=== PATIENT | female | born 1955 | race Caucasian/White ===

== ENCOUNTER → 2023-04-30 09:35 | Outpatient (POV) | payer MEDICARE, SELFPAY ==
[2023-04-30 09:48] VITALS: BP 140/68; PULSE 68; RESP 18; O2SAT 98; BMI 27.2
--- NOTE | 2023-04-30 10:07 | EXP.PAIN.OV ---
HPI Data of Consult Patient: new to practice Consult date: 04/30/23 Requesting Physician: Glendy Nieto APRN Consult Narrative Reason for consult: Low back pain, bilateral lower extremity pain History of present illness: Ms. Hanson is a 67 year old female who presents today as a transfer patient from the [place] office. Today she rates her pain a 7 out of 10. Patient states her pain is all in her low back and legs and describes it as a aching, throbbing sensation that is worse with increased activity. Patient did just recently undergo a Medtronic spinal cord stimulator generator change on April 07. Patient previously had a spinal cord stimulator implanted by Dr. Ly in 2013. She presents today for suture removal. Patient denies any previous issues with this device or any problems since her procedure date. She does state that the spinal cord stimulator does help manage prachi pain symptoms well. Patient is a [facility] patient who was originally referred to [facility] pain management for the battery change. She is currently managed by his office with morphine sulfate ER 15 mg daily and oxycodone 10 mg 4 times a day. Patient is also prescribed lorazepam 1 mg 3 times a day from another outside provider. Her Tristian is [id number]. Its been reviewed and appropriate. CC: Glendy Nieto APRN [facility] Disclaimer: The information contained in this section may have been updated after the patient was seen, as this information can be updated by other users. Medical History (Updated 04/30/23 @ 10:12 by Glendy Nieto APRN) Anxiety Degenerative disc disease, lumbar Diabetes Surgical History (Updated 04/28/23 @ 10:23 by Melanie Al RN) H/O lumbar discectomy S/P insertion of spinal cord stimulator Social History Smoking Status: Unknown if ever smoked alcohol intake: never current occupational status: other Travel in the last 8 weeks: None Review of Systems Review of Systems Review of systems:: pertinent systems reviewed and negative unless documented below Review of systems (narrative): Review of Systems: General: No recent weight changes, no fever, no sleep disturbances Respiratory: No cough, no shortness of air, no recurring pulmonary infections Cardiovascular/peripheral vascular: No chest pain, no palpitations, no edema, no shortness of breath Gastrointestinal: No new onset incontinence, normal bowel movements reported Genitourinary: No new onset incontinence Musculoskeletal: Low back pain, leg pain Psychiatric: [Normal mood/affect] Neurological: [Denies weakness in extremities], [denies balance issues] Meds Home Medications and Allergies Home Medications Medication Instructions Recorded Confirmed Type amitriptyline 50 mg tablet 50 mg PO DAILY Pain 04/28/23 04/28/23 History empagliflozin 10 mg-linagliptin 5 1 tab PO DAILY Diabetes 04/28/23 04/28/23 History mg-metformin ER 1,000 mg tablet,24hr (Trijardy XR) folic acid 1 mg tablet 1 mg PO DAILY Supplement 04/28/23 04/28/23 History hydrochlorothiazide 25 mg tablet 25 mg PO DAILY fluid retention 04/28/23 04/28/23 History linaclotide 145 mcg capsule 145 mcg PO DAILY Constipation 04/28/23 04/28/23 History (Smitha) lisinopril 20 mg tablet 20 mg PO DAILY blood pressure 04/28/23 04/28/23 History lorazepam 1 mg tablet 1 mg PO TID Anxiety 04/28/23 04/28/23 History methotrexate sodium 2.5 mg tablet 2.5 mg PO DAILY Arthritis 04/28/23 04/28/23 History metoprolol tartrate 25 mg tablet 25 mg PO BID blood pressure 04/28/23 04/28/23 History morphine 15 mg tablet,extended 15 mg PO DAILY chronic pain 04/28/23 04/28/23 History release oxycodone 10 mg tablet 10 mg PO QID chronic pain 04/28/23 04/28/23 History pravastatin 40 mg tablet 40 mg PO HS Cholesterol 04/28/23 04/28/23 History prednisone 5 mg tablet 5 mg PO DAILY Arthritis 04/28/23 04/28/23 History New Prescriptions to Start Prescriptions: Allergies Allergy/AdvReac Type Severity Reaction Status Date
== END ==
PROVIDERS: Visit Provider Nurse Practitioner Family
DX: M54.16 Radiculopathy, lumbar region (principal); M54.50 Low back pain, unspecified; G89.4 Chronic pain syndrome; Z96.82 Presence of neurostimulator; Z48.02 Encounter for removal of sutures
CPT/HCPCS: 99202; G0463

== ENCOUNTER → 2023-06-26 11:18 | Outpatient (POV) | payer MEDICARE, SELFPAY ==
--- NOTE | 2023-06-26 12:08 | EXP.PAIN.SOA ---
[facility] Pain Management SOAP Note Subjective:: Patient is a pleasant 67-year-old female who presents today for follow-up. We are currently treating the patient for degenerative disc disease of lumbar spine with lumbar radiculopathy symptoms, chronic pain syndrome. Today she rates her pain a 6 out of 10. Patient denies any new trauma or injury. She denies any change to the location or type of pain she experiences. Patient does present today for reprogramming for however Medtronic spinal cord stimulator. Patient had her previous stimulator replaced on April 07, 2023. Patient denies any new issues following this procedure. She states she has no further incisional pain and has done well overall. Patient is managed by OZZIE Lopez for her pain medication. Patient is taking morphine sulfate ER 15 mg daily and oxycodone 10 mg 4 times a day. Patient is prescribed lorazepam 1 mg 3 times a day from an outside provider. Her Tristian is [id number]. Its been reviewed and appropriate. Review of Systems: General: No recent weight changes, no fever, no sleep disturbances Respiratory: No cough, no shortness of air, no recurring pulmonary infections Cardiovascular/peripheral vascular: No chest pain, no palpitations, no edema, no shortness of breath Gastrointestinal: No new onset incontinence, normal bowel movements reported Genitourinary: No new onset incontinence Musculoskeletal: Low back pain, bilateral leg pain Psychiatric: [Normal mood/affect] Neurological: [Denies weakness in extremities], [denies balance issues] Objective:: Physical Exam: General: Alert and oriented x3, no acute distress, pleasant and cooperative Lungs: Respirations even and unlabored, symmetrical chest expansion Eyes: PERRL Musculoskeletal: Flexion and extension of lumbar [spine] somewhat guarded secondary to pain, [antalgic gait noted] Neurological: Speech clear, no gross sensory deficit Assessment:: Degenerative disc disease of lumbar spine with lumbar radiculopathy symptoms, chronic pain syndrome Plan:: Patient was able to be reprogrammed with her spinal cord stimulator. [employer] access representative states there are still some issues connecting her hand-held device with the spinal cord stimulator and is reaching out to his tech department to help troubleshoot. Patient does state that the new programming is working exceptionally well right now. Patient will return to clinic in 3 months for reevaluation of symptoms and plan of care. Patient has been instructed to contact the clinic with any concerns before the next appointment. Dr. Kelsey has reviewed this note and agrees with this plan of care. This note was dictated using voice recognition software and make contain errors or omissions. [facility] Disclaimer: The information contained in this section may have been updated after the patient was seen, as this information can be updated by other users. Medical History Anxiety Degenerative disc disease, lumbar Diabetes Surgical History H/O lumbar discectomy S/P insertion of spinal cord stimulator Social History (Updated 04/30/23 @ 10:47 by Alethea Camara RN) Smoking Status: Unknown if ever smoked alcohol intake: never current occupational status: other Travel in the last 8 weeks: None
[2023-06-26 12:31] VITALS: BP 129/62; PULSE 71; RESP 18; O2SAT 97; BMI 28.8
== END ==
PROVIDERS: Visit Provider Nurse Practitioner Family
DX: M51.16 Intervertebral disc disorders with radiculopathy, lumbar region (principal); G89.4 Chronic pain syndrome; Z96.82 Presence of neurostimulator
CPT/HCPCS: 99212; G0463

== ENCOUNTER 2025-10-09 11:24 | Emergency (ER) | payer MEDICARE, SELFPAY ==
--- OUTSIDE RECORDS SUMMARY | 2025-01-26 03:00 | XMS_ITS ---
Author Organization [facility] [place] Address [address] [facility] [place] [address] Care Team Providers Care Hog Man Name Role Phone CHANDU REILLY Primary Care Provider Lizette MEDLEY, Chandu Unavailable Unavailable VIKTORIA CORDOVA Unavailable [phone] REASON FOR VISIT AWV Encounters Encounter Location Date Provider Diagnosis [facility] [place] [address] [place] [address] 01/26/2025 VIKTORIA CORDOVA Plan Of Treatment Next Appt Details Provider Name:Armando Guillaume, Fletcher 10/18/2025 03:30:00 PM, [address], [place], [address], Provider Name:VIKTORIA CORDOVA , 02/09/2026 11:30:00 AM, [address], [place], [address], Progress Notes * Ryne WINKLER GDOB: [birth year] (70 yo F)Acc No.[id number]:01/26/2025 Progress Note Patient: Ryne LOOMIS Appointment Provider: Tonja CORDOVA APRN :1955 A ge:69 Y S ex:Female Date:01/26/2025 Address:[address] [facility] [address] [id number] Pcp:CHANDU REILLY Subjective: * Chief Complaints: * 1 . AWV. * Medical History: Objective: * Vitals: Assessment: Plan: * Treatment: * * Electronic signature of ULISES CORDOVA APRN on 10/09/2025 at 11:45 AM EST Sign off status: Pending * Appointment Provider: Tonja CORDOVA APRN Date: 0 01/26/2025 Generated for Printing/Faxing/eTransmitting on: 1 12/10/2024 11:45 AM EST
--- OUTSIDE RECORDS SUMMARY | 2025-02-08 03:45 | XMS_ITS ---
Author Organization [facility] [place] Address [place] [place] [address] Care Team Providers Care Vibration Engineer Name Role Phone CHANDU REILLY Primary Care Provider Lizette MEDLEY, Chandu Unavailable Unavailable Kenia Boogie Unavailable [phone] REASON FOR VISIT medicare wellness Encounters Encounter Location Date Provider Diagnosis [facility] [place] [address] [place] [address] 02/08/2025 Kenia Boogie Plan Of Treatment Next Appt Details Provider Name:Armando Guillaume, Fletcher 10/18/2025 03:30:00 PM, [address], [place], [address], Provider Name:VIKTORIA ASHLYNGEOVANNY , 02/09/2026 11:30:00 AM, [address], [place], [address], Progress Notes * Ryne WINKLER GDOB: [birth year] (70 yo F)Acc No.[id number]:02/08/2025 Progress Note Patient: Ryne LOOMIS Provider: SENIA Ramires :1955 A ge:69 Y S ex:Female Date:02/08/2025 Address:[address] [facility] [address] [id number] Pcp:REZKALLA A BUTROS Subjective: * Chief Complaints: * 1 . Medicare wellness. * Medical History: Objective: * Vitals: Assessment: Plan: * Treatment: * * Electronic signature of SENIA Ayala on 10/09/2025 at 11:43 AM EST Sign off status: Pending * Provider: SENIA Ramires Date: 0 02/08/2025 Generated for Rubina jeter/Heidi/Yunior on: 1 12/10/2024 11:43 AM EST
--- OUTSIDE RECORDS SUMMARY | 2025-07-12 03:00 | XMS_ITS ---
Author Organization [facility] [place] [address] Care Team Providers Care Diet Aid Name Role Phone CARY REILLY Primary Care Provider Lizette MEDLEY, Cary Unavailable Unavailable VIKTORIA CORDOVA Unavailable [phone] REASON FOR VISIT FU Encounters Encounter Location Date Provider Diagnosis [facility] [place] [address] [place] [address] 07/12/2025 VIKTORIA CORDOVA Plan Of Treatment Next Appt Details Provider Name:Armando Guillaume, Fletcher 10/18/2025 03:30:00 PM, [address], [place], [address], Provider Name:VIKTORIA CORDOVA , 02/09/2026 11:30:00 AM, [address], [place], [address], Progress Notes * Ryne WINKLER GDOB: [birth year] (70 yo F)Acc No.[id number]:07/12/2025 Progress Notes Patient: Ryne LOOMIS Appointment Provider: Tonja CORDOVA APRN :1955 A ge:69 Y S ex:Female Date:07/12/2025 Address:[address] [facility] [address] [id number] Pcp:CARY REILLY Subjective: * Chief Complaints: * 1 . FU. * Medical History: Objective: * Vitals: Assessment: Plan: * Treatment: * * Electronic signature of ULISES CORDOVA APRN on 10/09/2025 at 11:43 AM EST Sign off status: Pending * Appointment Provider: Tonja CORDOVA APRN Date: 0 07/12/2025 Generated for Printing/Faxing/eTransmitting on: 1 12/10/2024 11:43 AM EST
[2025-10-09] VITALS (13 sets, daily range): BP systolic 84–212; BP diastolic 56–111; PULSE 68–91; RESP 16; TEMP 37; O2SAT 91–100; BMI 28.5
--- NOTE | 2025-10-09 11:36 | ECG_ITS ---
APPROVED REPORT Exam: Resting ECG HR:71 bpm ECG Measurements Heart Rate 71 AXES TX 182 P 85 QRSd 105 QRS 85 QT 409 T 80 QTc 431 Conclusion SINUS RHYTHM LOW QRS VOLTAGE IN PRECORDIAL LEADS [QRS DEFLECTION < 1.0 mV IN CHEST LEADS] BORDERLINE ECG Electronically signed by : RODRICK CHERRY, 10/11/2025 08:42:18
--- NOTE | 2025-10-09 11:38 | XR_ITS ---
PROCEDURE INFORMATION: Exam: XR Chest Exam date and time: 10/09/2025 11:54 AM Age: 70 years old Clinical indication: Shortness of breath; Additional info: Short of breath TECHNIQUE: Imaging protocol: Radiologic exam of the chest. Views: 1 view. COMPARISON: No relevant prior studies available. FINDINGS: Lungs: Unremarkable. No consolidation. Pleural spaces: Unremarkable. No pleural effusion. No pneumothorax. Heart/Mediastinum: Unremarkable. No cardiomegaly. Bones/joints: Unremarkable. IMPRESSION: No acute findings.
--- OUTSIDE RECORDS SUMMARY | 2025-10-09 11:43 | XMS_ITS ---
Care Plan - [facility], [facility] Created on: October 09, 2025 Ryne Hanson : 1955 Sex: Female Author Organization [facility] Address [address] [place] [address] Phone Care Team Providers Care Milk House Worker Name Role Phone CASEY CLARK PA-C Unavailable [phone]
--- OUTSIDE RECORDS SUMMARY | 2025-10-09 11:43 | XMS_ITS | Encounter Summary ---
Author Organization [employer] ([place], [place], [place], [place], [place]) Address [address] [place] [address] Care Team Providers Care Production Control Clerk Name Role Phone Chandu Bauer MD Primary Care Provider [phone] Encounter Details Date Type Department Care Team (Late st Contact Info) Description 06/08/2019 Transcribed Document [facility] [place] Count [facility] the [facility] [place] [address] ProviderYany MD [address] [place] [address] [id number] Social History Tobacco Use Types Packs/Day Years Used Date Smoking Tobacco: Never Assessed Comments Unknown Sex and Gender Information Value Date Recorded Sex Assigned at Not on file Legal Sex Female 5:31 PM CDT Gender Identity Not on file Sexual Orientation Not on file documented as of this encounter Miscellaneous Notes * [employer]ner Conversion Note - Yany ProviderMD - 06/08/2019 12:17 PM CDT Patient: RYNE WINKLER Age: 63 Years Sex: Female : 1955 DATE OF SERVICE: 06/03/2019. CHIEF COMPLAINT: Chronic pain in low back, hips, feet, legs front and back. HISTORY OF PRESENT ILLNESS: The patient is a 63 year old female who returns to the clinic for follow-up on her chronic pain, low back pain, legs, feet, and hips. She rates her pain as 7/10 on the pain scale. Quality is aching, burning, radiating, numbness, tingling, dull and sharp. The pain is constant. She has had her pain since 1997. She has 50% relief with her current medication. Fall risk information sheet has been provided. ALLERGIES: VICODIN, TOPERAMATE, SULFA DRUGS, LYRICA, PENICILLIN. SOCIAL HISTORY: Marital status: . Current work status: Disabled. Current tobacco use: Denied. Illicit drug use: Denied. Alcohol use: Denied. Caffeine use: Not answered. PAST MEDICAL HISTORY: High blood pressure, high cholesterol, migraines. PAST SURGICAL HISTORY: Appendix, breast, hysterectomy, spinal surgery, back, tonsils and adenoids, tubal, spinal cord stimulator. PAST FAMILY HISTORY: Small cell lung cancer, diabetes. REVIEW OF SYSTEMS: The patient's Ten System Review of Systems was performed: General: Weight gain. Respiratory: Negative. Neurological: Dizziness. Gastrointestinal: Constipation.. Musculoskeletal: Joint pain, stiffness, back pain, muscle weakness, muscle aches and pain. Cardiovascular: Leg pain with walking. Psychiatric: Anxiety. HEENT: Negative. Endocrine: Negative. Hematology: Negative. Skin: Negative. Genitourinary: Negative. VITAL SIGNS: Vital signs are reviewed. B/P 97/65, heart rate 72, respiratory rate 18, O2 SATs 98% on room air, height 5???7?? , weight 182 lb. PHYSICAL EXAMINATION: Constitutional: Freely conversant, no acute distress. General: The patient is alert and oriented x3. Normal mood and affect. The patient scored a 13 on the depression questionnaire. She is treated. Integumentary: Deferred. HEENT: Deferred. Neck: Deferred. Chest and Lung: Deferred. Cardiovascular: Deferred. Abdomen: Deferred. Peripheral Vascular: Deferred Neurologic: Deferred. Neuropsychiatric: Deferred. Musculoskeletal: Deferred. DIAGNOSTIC STUDIES: Not present. MEDICAL DECISION MAKING: Stable. LAWSON is reviewed and is appropriate. Patient's medications reviewed. See list in patient's file. The patient is receiving a Urine Tox. Screen today. ASSESSMENT: 1. Chronic pain secondary to lumbar spondylosis. 2. 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 3. Radiculitis of bilateral lower extremities, left greater than right. Status post spinal cord stimulator, Medtronic. 4. Lumbar facet arthropathy. 5. Degenerative disc disease. PROCEDURE/TEST ORDERED: Not present. PLAN: We are going to continue Ms. Winkler on her current medication of Sabula 10 mg. q.6 hours, Morphine Sulfate ER 15 mg. q.h.s. She denies any side effects. The patient is in agreement with the above plan. We will see this patient back in follow-up in two months. Suad Peterson M.D. ANGI:phyllis Electronically signed by [facility], [facility] Conversion Client Program Manager Cerner at 01/28/2023 3:10 PM CDT documented in this encounter Plan of Treatment Not on file documented as of this encounter Visit Diagnoses Not on filedocumented in this encounter Care Teams Production Control Clerk Relationship Specialty Start Date End Date Chandu Bauer MD [address] [place] [id number] PCP - General Nephrology 07/21/25 documented as of this encounter
--- OUTSIDE RECORDS SUMMARY | 2025-10-09 11:43 | XMS_ITS | Encounter Summary ---
Author Organization [employer] ([place], [place], [place], [place], [place]) Address [address] [place] [address] Care Team Providers Care Nail Mill Worker Name Role Phone Chandu Bauer MD Primary Care Provider [phone] Encounter Details Date Type Department Care Team (Late st Contact Info) Description 08/16/2019 Transcribed Document [facility] [place] [facility] [place] [address] ProviderYany MD [address] [place] [address] [id number] Social History Tobacco Use Types Packs/Day Years Used Date Smoking Tobacco: Never Assessed Comments Unknown Sex and Gender Information Value Date Recorded Sex Assigned at Not on file Legal Sex Female 5:31 PM CDT Gender Identity Not on file Sexual Orientation Not on file documented as of this encounter Miscellaneous Notes * Cerner Conversion Note - Yany ProviderMD - 08/16/2019 1:35 PM OFFICE SUPPORT SPECIALIST Patient: RYNE WINKLER Age: 63 Years Sex: Female : 1955 FOLLOWUP DATE OF SERVICE: 08/12/2019 CHIEF COMPLAINT: Chronic pain in low back, hips, feet, legs, front and back. HISTORY OF PRESENT ILLNESS: This patient is a 63-year-old female who returns to clinic for followup on her low back, feet, hips, legs. She rates the pain as 7/10 on the pain scale. Quality is aching, burning, radiating, numbness and tingling, dull and sharp. The pain is constant. She has had her pain since 1997. She has increased pain with standing and walking, decreased pain with spinal cord stimulator, sitting and medication. She gets 40% relief with her current medication. Fall risk info sheet provided. HISTORY: Allergies: Topiramate, penicillin, Lyrica, sulfa drugs, Vicodin. Social: Marital status: . Current work status: Disabled. Current tobacco use: Denied Illicit drug use: Denied Alcohol use: Denied Caffeine use: She drinks caffeine. Past Medical History: Positive for high blood pressure, high cholesterol, migraines. Past Surgical History: Positive for appendix, breasts, hysterectomy, spinal surgery to the back, tonsillectomy and adenoidectomy, tubal, spinal cord stimulator implantation. Past Family History: Positive for small cell cancer, diabetes. REVIEW OF SYSTEMS: Complete ten-system review is performed and positives include: General: Weight gain. Neurological: Dizziness, numbness and tingling. Gastrointestinal: Constipation. Musculoskeletal: Joint pain, stiffness, back pain, muscle weakness, muscle aches and pain. Cardiovascular: Leg pain with walking. Psychiatric: Anxiety. All other systems are negative. VITAL SIGNS: Vital signs are reviewed. BP 133/81, heart rate 88, respiratory rate 18, O2 SAT 95% on room air, height 5???7?? , weight 182 lbs. PHYSICAL EXAMINATION: Constitutional: Freely conversant, no acute distress. Neuropsychiatric: A&O x 3. Normal mood and affect. She scored eight on the depression questionnaire. Established patient exam is deferred. MEDICAL DECISION MAKING: E-LAWSON is reviewed and is appropriate. Patient???s medications are reviewed. See list in patient???s file. ASSESSMENT: 1. Chronic pain syndrome. 2. Lumbar spondylosis. 3. Lumbar radiculitis bilateral lower extremities, left>right, with spinal cord stimulator, Medtronic. 4. Lumbar facet arthropathy. 5. Lumbar degenerative disc disease. PROCEDURE/TEST ORDERED: Urine tox screen from 06/03/19 is reviewed and is appropriate. CURRENT PLAN: We will continue Ms. Winkler on the current medication of morphine sulfate ER 15 mg 1 p.o. q.h.s., Oxycodone 10 mg 1 p.o. q6h. She denies any side effects. She is in agreement with the above plan. We will see her back in followup in two months. Suad Peterson MD documented in this encounter Plan of Treatment Not on file documented as of this encounter Visit Diagnoses Not on filedocumented in this encounter Care Teams Nail Mill Worker Relationship Specialty Start Date End Date Chandu Bauer MD [address] [place] [phone] PCP - General Nephrology 07/21/25 documented as of this encounter
--- OUTSIDE RECORDS SUMMARY | 2025-10-09 11:43 | XMS_ITS | Encounter Summary ---
Author Organization [employer] ([place], [place], [place], [place], [place]) Address [address] [place] [address] Care Team Providers Care Transit Survey Worker Name Role Phone Chandu Bauer MD Primary Care Provider [phone] Encounter Details Date Type Department Care Team (Late st Contact Info) Description 12/04/2020 Transcribed Document [facility] [place] [address] ProviderYany MD [address] [place] [address] Social History Tobacco Use Types Packs/Day Years Used Date Smoking Tobacco: Never Assessed Comments Unknown Sex and Gender Information Value Date Recorded Sex Assigned at Not on file Legal Sex Female 5:31 PM CDT Gender Identity Not on file Sexual Orientation Not on file documented as of this encounter Miscellaneous Notes * Cerner Conversion Note - Historical ProviderMD - 12/04/2020 12:56 PM ORIENTAL RUG STRETCHER Patient: RYNE WINKLER Age: 65 Years Sex: Female : 1955 FOLLOW-UP (TELEMEDICINE) DATE OF SERVICE: 11/06/2020. CHIEF COMPLAINT: Low back pain, bilateral leg pain. HISTORY OF PRESENT ILLNESS: The patient is a 65-year-old female who is being seen in the clinic today via telemedicine secondary to the COVID-19 outbreak restrictions. The patient states that she has a 23-year history significant for back pain as well as bilateral leg pain. Her pain level today is an 8/10 on the numerical pain scale rating. She reports no significant change in her pain with the use of Oxycodone 10 mg four times daily dosing along with Morphine Sulfate 15 mg extended release one at bedtime. The patient denies any emergency room visits at this time. She has had multiple falls secondary to being diagnosed with Covid-19. She states she is very weak at this time secondary to having the infection. She has some mild depression issues at this time. HISTORY: Allergies: Oral steroids, Penicillin, Vicodin, Sulfa medications, Lyrica, and Topamax. Past Medical History: Osteoarthritis. Hypertension. Hyperlipidemia. Kidney stones. Migraine headaches. Past Surgical History: Appendectomy. Lumpectomy. Complete hysterectomy. Spinal surgery of the lumbar spine x 4. Tonsillectomy/adenoidectomy. Tubal ligation. Spinal cord stimulator trial and subsequent implant with revisions x 3. REVIEW OF SYSTEMS: The patient's ten system Review of Systems was reviewed and at today's visit this individual has complaints of the following: General: Weight gain. Respiratory: Negative. Neurological: Dizziness, numbness/tingling. Gastrointestinal: Constipation. Musculoskeletal: Joint pain/stiffness, back pain, muscle weakness, muscle aches and pains. Cardiovascular: Leg pain with walking. Psychiatric: Anxiety. HEENT: Negative. Endocrine: Negative. Hematology: Negative. Skin: Negative. Genitourinary: Negative. PHYSICAL EXAMINATION: Deferred. ASSESSMENT: 1. Chronic pain syndrome. 2. Lumbar degenerative disc disease. 3. Lumbar spondylosis. 4. Lumbar facet arthropathy. 5. Lumbar radiculitis involving the bilateral lower extremities status post spinal cord stimulator implantation, [employer] system. CURRENT PLAN: I am going to continue this individual on her current medication regimen from our facility at this time. We will hopefully be able to see her back in clinic in two months for her next follow-up date. The patient has an understanding and agrees with the above plans. MANOHAR Gil/elly documented in this encounter Plan of Treatment Not on file documented as of this encounter Visit Diagnoses Not on filedocumented in this encounter Care Teams Transit Survey Worker Relationship Specialty Start Date End Date Chandu Bauer MD [address] [place] [phone] PCP - General Nephrology 07/21/25 documented as of this encounter
--- OUTSIDE RECORDS SUMMARY | 2025-10-09 11:43 | XMS_ITS | Clinical Summary ---
Author Organization [employer] ([place], [place], [place], [place], [place]) Address [address] [place] [address] Care Team Providers Care Biomedical Photographer Name Role Phone Chandu Bauer MD Primary Care Provider [phone] Allergies Active Allergy Reactions Criticality Noted Date Comments Amoxicillin 03/09/2025 Pregabalin 03/09/2025 Penicillin 03/09/2025 Sulfa (Sulfonamide Antibiotics) 02/11 Topiramate 03/09/2025 Hydrocodone-Acetaminophen 03/09/2025 Medications pravastatin (PRAVACHOL) 40 MG tablet Take 1 tablet (40 mg total) by mouth nightly. Active hydroCHLOROthia zide (HYDRODIURIL) 25 MG tablet Take 1 tablet (25 mg total) by mouth daily. Active morphine (MS CONTIN) 15 MG 12 hr tablet Take 1 tablet (15 mg total) by mouth every night as needed for severe pain (7-10). Max Daily Amount: 15 mg Active oxyCODONE-aceta minophen (PERCOCET) 10-325 mg per tablet Take 1 tablet by mouth every 6 (six) hours as needed for pain Look-alike/So und-alike medication. Max Daily Amount: 4 tablets Active fluticasone propionate (FLONASE) 50 mcg/actuation nasal spray Administer 1 spray into each nostril daily. Active cholecalciferol , vitamin D3, 1,250 mcg (50,000 unit) tab Take 1 tablet (50,000 Units total) by mouth once a week. Active folic acid (FOLVITE) 1 MG tablet Take 1 tablet (1 mg total) by mouth daily. Active amitriptyline (ELAVIL) 50 MG tablet Take 1 tablet (50 mg total) by mouth nightly. Active cetirizine (ZyrTEC) 10 MG tablet Take 1 tablet (10 mg total) by mouth daily. Active aspirin 81 MG EC tablet Take 1 tablet (81 mg total) by mouth daily. Active lisinopriL (ZESTRIL) 20 MG tablet Take 1 tablet (20 mg total) by mouth daily. Active metoprolol tartrate (LOPRESSOR) 25 MG tablet Take 1 tablet (25 mg total) by mouth daily. Active escitalopram (LEXAPRO) 10 MG tablet Take 1 tablet (10 mg total) by mouth daily. Active hydrOXYzine (ATARAX) 10 MG tablet Take 1 tablet (10 mg total) by mouth every 4 (four) hours as needed for itching Look-alike/So und-alike medication. Active linaCLOtide (Linzess) 145 mcg cap Take 1 capsule (145 mcg total) by mouth every morning before breakfast. Active methotrexate 2.5 MG tablet Take 4 tablets (10 mg total) by mouth once a week. Active magnesium chloride 64 mg magnesium tab Take 64 mg by mouth 2 (two) times daily. Active insulin glargine (LANTUS, SEMGLEE) 100 unit/mL injection Inject 60 Units under the skin every morning Use as directed. Active insulin glargine (LANTUS, SEMGLEE) 100 unit/mL injection Inject 30 Units under the skin nightly Use as directed. Active empaglifloz-liz aglip-metformin (Trijardy XR) 10-5-1,000 mg TBph Take 10 mg by mouth daily. Active nitrofurantoin, macrocrystal-mo nohydrate, (MACROBID) 100 MG capsule Take 1 capsule (100 mg total) by mouth every 12 (twelve) hours. Active insulin degludec (Tresiba FlexTouch U-100) 100 unit/mL (3 mL) inpn Inject 30 Units under the skin 2 (two) times daily 30 units in the morning and 30 units at night . Active Active Problems Problem Noted Date Diagnosed Date Colon cancer screening 03/17/2025 Encounters Date Type Department Care Team Description 07/21/2025 6:27 PM EDT - 07/21/2025 6:55 PM EDT Emergency [facility] Emergency Department [address] [place] [address] Jaguar Garrett DO Contusion of left hand, initial encounter (Primary Dx); Fall, initial encounter Discharge Disposition: Home or Self Care 07/21/2025 Travel from Last 3 Months Social History Tobacco Use Types Packs/Day Years Used Date Smoking Tobacco: Never Assessed Food Insecurity Answer Date Recorded Food run out past 12 months Not on file 10/2023 Food did not last past 12 months Not on file 12/12/2023 Employment Answer Date Recorded Help finding and keeping a job Not on file 0 12/12/2023 Family and Community Support Answer [employer] e Recorded Help with Day to Day Activities Not on file 12/12/2023 Feeling Lonely or Isolated Not on file 12/11 Educational Attainment Answer Date Harsh rded Speak language other than Kosovan at home Not on file 12/12/2023 Want help with school or training Not on file 12/12/2023 Substance Use Answer Date Recorded Used prescription meds for non-medical reasons N ot on file 12/12/2023 Used illegal drugs past 12 months Not on file 12/12/2023 Comments Unknown Sex and Gender Information Value Date Recorded Sex Assigned at Not on file Legal Sex Female 5:31 PM CDT Gender Identity Not on file Sexual Orientation Not on file Last Filed Vital Signs Vital Sign Reading Time Taken Comments Blood Pressure 172/81 07/21/2025 6:49 PM EDT Pulse 84 07/21/2025 6:49 PM EDT Temperature 36.1 C (96.9 F) 07/21/2025 6:30 PM EDT Respiratory Rate 18 07/21/2025 6:30 PM EDT Oxygen Saturation 98% 07/21/2025 6:49 PM EDT Inhaled Oxygen Concentration - - Weight - - Height - - Body Mass Index - - Plan of Treatment Health Maintenance Due Date Last Done Comments CT Colonography 1955 Colonoscopy 1955 Colorectal Cancer Screening 1955 DXA SCAN 1955 FOBT/FIT 1955 Fit-DNA (Cologuard) 1955 Sigmoidoscopy 1955 Depression Screening (12+) 1968 Tobacco Cessation Counseling and Screening (12+) 1968 Hepatitis C Screening 1974 DTAP/TDAP/TD VACCINES (1 - Tdap) 1975 Pneumococcal 50+ years (1 of 2 - PCV) 1975 Shingles Vaccine (Zoster) (1 of 2) 1975 Breast Cancer Screening 1996 Respiratory Syncytial Virus (RSV) Adult or (1 - Risk 60-74 years 1-dose series) 2016 COVID-19 VACCINE (3 - Moderna risk series) 03/29/2021 03/01/2021, 02/01/2021 Falls Risk Screening 10/13/2024 Medicare IPPE (Welcome to Medicare) G0402 10/13/2024 Influenza Vaccine (#1) 2025 Procedures Procedure Name Priority Date/Time Associated Diagnosis Comments XR WRIST COMPLETE 3 VIEWS MIN LEFT STAT 07/21/2025 6:41 PM EDT XR HAND 3 VIEWS LEFT STAT 07/21/2025 6:41 PM EDT from Last 3 Months Results * XR wrist complete 3 views min left (07/21/2025 6:41 PM EDT) Anatomical Region Laterality Modality X-Ray 07/22/2025 8:19 AM EDT Impressions 07/22/2025 8:20 AM EDT No acute bony abnormality. LEFT HAND SERIES HISTORY: Acute pain, fall. COMPARISON: None. FINDINGS: A three view exam demonstrates no acute fracture or dislocation. The joint spaces appear unremarkable. No soft tissue abnormality is seen. IMPRESSION: No acute bony abnormality. Images reviewed, interpreted, and dictated by Dr. Luis E Duque. Transcribed by Alesia Corey PA-C. Narrative 07/22/2025 8:20 AM EDT LEFT WRIST SERIES HISTORY: Acute pain, fall. COMPARISON: None. FINDINGS: A three view exam demonstrates no acute fracture or dislocation. The joint spaces appear unremarkable. No soft tissue abnormality is seen. Procedure Note Luis E Duque MD - 07/22/2025 LEFT WRIST SERIES HISTORY: Acute pain, fall. COMPARISON: None. FINDINGS: A three view exam demonstrates no acute fracture or dislocation. The joint spaces appear unremarkable. No soft tissue abnormality is seen. IMPRESSION: No acute bony abnormality. LEFT HAND SERIES HISTORY: Acute pain, fall. COMPARISON: None. FINDINGS: A three view exam demonstrates no acute fracture or dislocation. The joint spaces appear unremarkable. No soft tissue abnormality is seen. IMPRESSION: No acute bony abnormality. Images reviewed, interpreted, and dictated by Dr. Luis E Duque. Transcribed by Alesia Corey PA-C. Jaguar Garrett DO IMG DIAGNOSTIC IMAGING ORDERABL ES Final Result * XR hand 3 views left (07/21/2025 6:41 PM EDT) Anatomical Region Laterality Modality Hand X-Ray 07/22/2025 8:19 AM EDT Impressions 07/22/2025 8:20 AM EDT No acute bony abnormality. LEFT HAND SERIES HISTORY: Acute pain, fall. COMPARISON: None. FINDINGS: A three view exam demonstrates no acute fracture or dislocation. The joint spaces appear unremarkable. No soft tissue abnormality is seen. IMPRESSION: No acute bony abnormality. Images reviewed, interpreted, and dictated by Dr. Luis E Duque. Transcribed by Alesia Corey PA-C. Narrative 07/22/2025 8:20 AM EDT LEFT WRIST SERIES HISTORY: Acute pain, fall. COMPARISON: None. FINDINGS: A three view exam demonstrates no acute fracture or dislocation. The joint spaces appear unremarkable. No soft tissue abnormality is seen. Procedure Note Luis E Duque MD - 07/22/2025 LEFT WRIST SERIES HISTORY: Acute pain, fall. COMPARISON: None. FINDINGS: A three view exam demonstrates no acute fracture or dislocation. The joint spaces appear unremarkable. No soft tissue abnormality is seen. IMPRESSION: No acute bony abnormality. LEFT HAND SERIES HISTORY: Acute pain, fall. COMPARISON: None. FINDINGS: A three view exam demonstrates no acute fracture or dislocation. The joint spaces appear unremarkable. No soft tissue abnormality is seen. IMPRESSION: No acute bony abnormality. Images reviewed, interpreted, and dictated by Dr. Luis E Duque. Transcribed by Alesia Corey PA-C. Jaguar Garrett DO IMG DIAGNOSTIC IMAGING ORDERABL ES Final Result from Last 3 Months Insurance [employer] AD[employer] Member Subscriber Plan / Payer (Ef fective 2024-Present) Name:Ryne Hanson Relation to Subscriber:Self Name:Valentin Ryne Payer ID:[id number] ([facility]) Type:Not on file Address: [facility] [address] [place] [address] Care Teams Biomedical Photographer Relationship Specialty Start Date End Date Chandu Bauer MD [address] [place] [phone] PCP - General Nephrology 07/21/25
--- OUTSIDE RECORDS SUMMARY | 2025-10-09 11:43 | XMS_ITS | Referral Summary ---
Author Organization [employer] ([place], [place], [place], [place], [place]) Address [address] [place] [address] Care Team Providers Care Spline Rolling Machine Job Setter Name Role Phone Chandu Bauer MD Primary Care Provider [phone] Encounters Date Type Department Care Team Description 07/21/2025 Travel 07/21/2025 6:27 PM EDT - 07/21/2025 6:55 PM EDT Emergency [facility] Emergency Department [address] [place] [phone] Jaguar Garrett DO Contusion of left hand, initial encounter (Primary Dx); Fall, initial encounter Discharge Disposition: Home or Self Care from Last 3 Months Allergies Active Allergy Reactions Criticality Noted Date [...] Date Diagnosed Date Colon cancer screening 03/17/2025 Social History Tobacco Use Types Packs/Day Years [...] Date Harsh rded Speak language other than Singaporean at home Not on file 12/12/2023 Want [...] Mass Index - - Plan of Treatment Not on file Procedures Procedure Name Priority Date/Time Associated Diagnosis [...] by Alesia Corey PA-C. Jaguar Garrett DO IM DIAGNOSTIC IMAGING ORDERABL ES Final Result * [...] Result from Last 3 Months Insurance [employer]ET[employer] [facility] ADV Care Teams Spline Rolling Machine Job Setter Relationship Specialty Start Date End Date Chandu Bauer MD [address] [facility] [place] [address] PCP - General Nephrology 07/21/25
--- OUTSIDE RECORDS SUMMARY | 2025-10-09 11:43 | XMS_ITS | Encounter Summary ---
Author Organization [employer] ([place], [place], [place], [place], [place]) Address [address] [place] [address] Care Team Providers Care Purchase Request Editor Name Role Phone Chandu Bauer MD Primary Care Provider [phone] Encounter Details Date Type Department Care Team (Late st Contact Info) Description 09/03/2020 Transcribed Document [facility] [place] [address] [place] [address] ProviderYany MD [address] [id number] Social History Tobacco Use Types Packs/Day Years Used Date Smoking Tobacco: Never Assessed Comments Unknown Sex and Gender Information Value Date Recorded Sex Assigned at Not on file Legal Sex Female 5:31 PM CDT Gender Identity Not on file Sexual Orientation Not on file documented as of this encounter Miscellaneous Notes * Cerner Conversion Note - Yany ProviderMD - 09/03/2020 3:37 PM PRODUCTION CONTROL MANAGER Patient: RYNE WINKLER Age: 64 Years Sex: Female : 1955 FOLLOW-UP Tele-Medicine DATE OF SERVICE: 08/10/2020 CHIEF COMPLAINT: Low back pain. HISTORY OF PRESENT ILLNESS: This is a 64 y/o female being seen in Tele-Medicine follow-up with a multi-year history of low back pain that radiates into the bilateral lower extremities for which she does have a spinal cord stimulator through [employer] placed. She overall describes her pain as constant, radiating and aching. The pain is exacerbated with standing, walking, lifting, bending, pushing, pulling and reduced with rest, medication. She currently rates the pain as a 7/10 VAS and reports a 75% reduction with medication. Medication list reviewed. Pertinent medications are noted to be Morphine extended release 15 mg one p.o. at bedtime, Oxycodone 10 mg 1 p.o. q 6 h. She is also on Ativan prescribed by another practice. She is being seen via Tele-Health as she had potentially been exposed to COVID-19 via her 's coworker. HISTORY: Allergies: Steroids, Penicillin, Vicodin, Sulfa, Lyrica, Topamax. Social History: Reviewed. Past Medical History: Hypertension High cholesterol Kidney stones Migraines Osteoarthritis Past Surgical History: Appendectomy Breast Lumpectomy Hysterectomy Back Tonsils and adenoids. Tubal Spinal cord stimulator Past Family History: Reviewed. REVIEW OF SYSTEMS: General: Negative Respiratory: Negative. Neurological: Negative Gastrointestinal: Negative Musculoskeletal: Back pain, muscle aches and pains. Cardiovascular: Negative Psychiatric: Negative HEENT: Negative. Endocrine: Negative. Hematology: Negative. Skin: Negative. Genitourinary: Negative. VITAL SIGNS: Vital signs are deferred secondary to Tele-Medicine visit. She is 5' 7 and weighs 186 lbs. PHYSICAL EXAMINATION: Constitutional: Conversant, no acute distress. Integumentary: Deferred. HEENT: Normocephalic. Neck: Deferred. Chest and Lung: Deferred. Cardiovascular: Deferred. Abdomen: Deferred. Peripheral Vascular: Deferred Neurologic: Deferred. Musculoskeletal: Deferred. Psychiatric: Alert and oriented x 3. Denies suicidal ideation. Normal mood and affect. No signs of impairment. DIAGNOSTIC STUDIES: Not present MEDICAL DECISION MAKING: Stable. ASSESSMENT: 1. Chronic pain syndrome. 2. Lumbar degenerative disc disease. 3. Lumbar radiculitis of the bilateral lower extremities status post spinal cord stimulator ([employer]). 4. Lumbar spondylosis. PROCEDURE/TEST ORDERED: Not present. CURRENT PLAN: We will continue current medications. Questions answered to her satisfaction and she verbalized understanding. LAWSON reviewed. Of note, her Pharmacy just recently changed names, and it is now called [facility] in [place], [place]., and her next follow-up appointment she requests a or Friday morning. Return to the clinic in two months. JASWANT Arteaga/layton Electronically signed by Sun, [facility] Conversion Cadd Operator Cerner at 01/28/2023 3:14 PM CDT documented in this encounter Plan of Treatment Not on file documented as of this encounter Visit Diagnoses Not on filedocumented in this encounter Care Teams Purchase Request Editor Relationship Specialty Start Date End Date Chandu Bauer MD [address] [place], [place] [phone] PCP - General Nephrology 07/21/25 documented as of this encounter
--- OUTSIDE RECORDS SUMMARY | 2025-10-09 11:43 | XMS_ITS | Encounter Summary ---
Author Organization [employer] ([place], [place], [place], [place], [place]) Address [address] [place] [address] Care Team Providers Care Marketing Technology Specialist Name Role Phone Chandu Bauer MD Primary Care Provider [phone] Encounter Details Date Type Department Care Team (Late st Contact Info) Description 06/12/2020 Transcribed Document [facility] [place] [facility] [place] [address] ProviderYany MD [address] [place] [address] Social History Tobacco Use Types Packs/Day Years Used Date Smoking Tobacco: Never Assessed Comments Unknown Sex and Gender Information Value Date Recorded Sex Assigned at Not on file Legal Sex Female 5:31 PM CDT Gender Identity Not on file Sexual Orientation Not on file documented as of this encounter Miscellaneous Notes * Cerner Conversion Note - Yany ProviderMD - 06/12/2020 2:07 PM CDT Patient: RYNE WINKLER Age: 64 Years Sex: Female : 1955 FOLLOW-UP DATE OF SERVICE: 06/12/2020. CHIEF COMPLAINT: Chronic pain, lower back, hips, legs front and back, and feet. HISTORY OF PRESENT ILLNESS: The patient is a 64-year-old female who returns to the clinic for follow-up on her 23-year history of low back pain that goes to her bilateral hips and lower extremities to her feet. She rates her pain as 7/10 on the pain scale. Quality is aching, burning, radiating, numbness, tingling, dull, and sharp. She gets 40% relief with her current medication. Pain is increased with activity; decreased with lying down and medication. Fall risk information sheet provided. HISTORY: Allergies: Steroids, Penicillin, Vicodin, Sulfa drugs, Lyrica, Topiramate. Social History: Marital status: . Current work status: Disabled. Current tobacco use: Denies. Illicit drug use: Denies. Alcohol use: Denies. Caffeine use: Not answered. Past Medical History: Arthritis. High blood pressure. High cholesterol. Kidney stones. Migraines. Past Surgical History: Appendix. Breast. Hysterectomy. Spinal surgery of the back. Tonsils/Adenoids. Tubal. Spinal cord stimulator. Past Family History: Small cell cancer. Diabetes. REVIEW OF SYSTEMS: The patient's ten system Review of Systems was performed. General: Weight gain. Respiratory: Negative. Neurological: Dizziness, numbness/tingling. Gastrointestinal: Constipation. Musculoskeletal: Joint pain/stiffness, back pain, muscle weakness, muscle aches and pain. Cardiovascular: Leg pain with walking. Psychiatric: Anxiety. HEENT: Negative. Endocrine: Negative. Hematology: Negative. Skin: Negative. Genitourinary: Negative. VITAL SIGNS: Vital signs are reviewed. Blood pressure 119/73, heart rate 80, respiratory rate 16, O2 SATs 95%, height 5'7 , weight 186 lbs. PHYSICAL EXAMINATION: Constitutional: Freely conversant and in no acute distress. Integumentary: Deferred. HEENT: Deferred. Neck: Deferred. Chest and Lung: Deferred. Cardiovascular: Deferred. Abdomen: Deferred. Peripheral Vascular: Deferred Neurologic: Deferred. Neuropsychiatric: Alert and oriented x 3. The patient scored a 14 on the depression questionnaire. She is treated. She has no suicidal ideation. Musculoskeletal: Negative. Established patient exam is deferred. MEDICAL DECISION MAKING: Patient's LAWSON is reviewed and is appropriate. Patient???s medications are reviewed, see list in patient???s file. Patient received a urine tox screen today. ASSESSMENT: Stable. 1. Chronic pain syndrome. 2. Lumbar degenerative disc disease. 3. Lumbar radiculitis bilateral lower extremities status post spinal cord stimulator implantation, [employer]. 4. Lumbar spondylosis. 5. Lumbar facet arthropathy. CURRENT PLAN: I am going to continue Ms. Winkler on her current medication of MS Contin 15 mg qhs and Oxycodone 10 mg every 6 hours. She takes Linzess. She is in agreement with the above plan. We will see her back in follow-up in two months. Suad Peterson M.D. ANGI/lely Electronically signed by Sun [facility] Conversion Curriculum Supervisor Cerner at 01/28/2023 3:07 PM CDT documented in this encounter Plan of Treatment Not on file documented as of this encounter Visit Diagnoses Not on filedocumented in this encounter Care Teams Marketing Technology Specialist Relationship Specialty Start Date End Date Chandu Bauer MD [address] [place] [phone] PCP - General Nephrology 07/21/25 documented as of this encounter
--- OUTSIDE RECORDS SUMMARY | 2025-10-09 11:43 | XMS_ITS ---
Author Organization [facility] , [facility] Address [address] [place] [address] Phone Care Team Providers Care Social Science Professor Name Role Phone CASEY CLARK PA-C Unavailable Plan of Treatment No Plan of Treatment Recorded Assessments Includes: Assessments for all patient encounters No Assessments Recorded Medical Equipment - Implanted Devices Includes: Current and historical Devices No Medical Equipment Recorded Medications Administered Includes: Administered Medications in patient's chart No Administered Medications Recorded Results Includes: Results from 10/09/2024 through 10/09/2025 No Results Recorded For Specified Dates Social History Description Last Updated Sex - Female 09/04/2022 Last Documented On 2 3:27PM ; [facility] Smoking Status Unknown Medical History Includes: Medical History in patient's chart No Medical History Recorded Family History Includes: Family History in patient's chart No Family History Recorded Care Social Science Professor Name (Identifier) Role/Relation Location/Telecom Last Documented By CASEY CLARK PA-C ([id number]) Assigned practitioner (occupation) [address], [place], [place], [address] tel: Last Documented On 09/04/2022 3:27PM ; [facility], [facility] Payer Includes: Active Insurance Policies Plan Name (Payer ID) Coverage Type Member ID Group # Subscriber (ID) Relationship Effective Dates 1 - [facility] ([id number]) [id number] Ryne Hanson Self Last Documented On 2 3:27PM ; [facility], [facility]
[2025-10-09 11:44] LABS: Coronavirus 19, PCR Not Detected (NotDetected); Influenza A, PCR Not Detected (NotDetected); Influenza B, PCR Not Detected (NotDetected)
--- OUTSIDE RECORDS SUMMARY | 2025-10-09 11:44 | XMS_ITS | Encounter Summary ---
Author Organization [employer] ([place], [place], [place], [place], [place]) Address [address] [place] [address] Care Team Providers Care Pile Driver Operator Name Role Phone Chandu Bauer MD Primary Care Provider Encounter Details Date Type Department Care Team (Late st Contact Info) Description 04/11/2020 Transcribed Document [facility] [place] Family Medicine [address] [place] [address] ProviderYany MD [address] [place] [address] Social History Tobacco Use Types Packs/Day Years Used Date Smoking Tobacco: Never Assessed Comments Unknown Sex and Gender Information Value Date Recorded Sex Assigned at Not on file Legal Sex Female 5:31 PM CDT Gender Identity Not on file Sexual Orientation Not on file documented as of this encounter Miscellaneous Notes * Cerner Conversion Note - Yany ProviderMD - 04/11/2020 12:02 PM CDT Patient: RYNE WINKLER Age: 64 Years Sex: Female : 1955 FOLLOW-UP TELE-MEDICINE DATE OF SERVICE: 03/22/2020 CHIEF COMPLAINT: Chronic pain in lower back, legs front and back, hips and feet. HISTORY OF PRESENT ILLNESS: The patient is a 64 y/o female who is evaluated today via Tele-Medicine secondary to COVID-19. She has low back pain that radiates to her feet with numbness and tingling. She states she has no changes since our last tele-medicine appointment. She is very upset, however, because 2 weeks ago, her brother went on the ventilator at for COVID-19 and is not doing very well. She states she has been around him and not real close contact. She rates her pain as 6/10 on the pain scale. She gets 70% relief with her current medication. SOCIAL HISTORY: Reviewed and noted. Allergies: Penicillin, Vicodin, sulfa drugs, Lyrica, topiramate. Past Medical History: Arthritis. High blood pressure. High cholesterol. Kidney stones. Migraines. Past Surgical History: Reviewed and noted. Past Family History: Reviewed and noted. REVIEW OF SYSTEMS: Complete ten system review was performed and noted to be positive for the following: General: Weight gain. Respiratory: Negative. Neurological: Dizziness, numbness and tingling. Gastrointestinal: Abdominal pain, constipation. Musculoskeletal: Joint pain, stiffness, back pain, muscle weakness, muscle aches and pains. Cardiovascular: Leg pain with walking. Psychiatric: Anxiety. HEENT: Negative. Endocrine: Negative. Hematology: Negative. VITAL SIGNS: Vital signs are deferred. PHYSICAL EXAMINATION: Physical examination is deferred. DIAGNOSTIC STUDIES: Not present. MEDICAL DECISION MAKING: The patient's LAWSON has been reviewed and is appropriate. The patient denies any depression or plans to harm herself. ASSESSMENT: Stable. 1. Chronic pain syndrome. 2. Lumbar degenerative disc disease. 3. Lumbar radiculitis, bilateral lower extremities, status post spinal cord stimulator implantation, [employer]. 4. Lumbar spondylosis. 5. Lumbar facet arthropathy. PROCEDURE/TEST ORDERED: Not present. CURRENT PLAN: I am going to continue Ms. Winkler on her current medications of morphine sulfate extended release 15 mg 1 p.o. q.h.s., oxycodone 10 mg every 6 hours. She takes Linzess. She is in agreement with the above plan. We will see her back in Clinic in two months. Suad Peterson M.D. KAI/cary documented in this encounter Plan of Treatment Not on file documented as of this encounter Visit Diagnoses Not on filedocumented in this encounter Care Teams Pile Driver Operator Relationship Specialty Start Date End Date Chandu Bauer MD [address] [place], [place] [id number] PCP - General Nephrology 07/21/25 documented as of this encounter
--- OUTSIDE RECORDS SUMMARY | 2025-10-09 11:44 | XMS_ITS | Encounter Summary ---
Author Organization [employer] ([place], [place], [place], [place], [place]) Address [address] [place] [address] Care Team Providers Care Program Manager Name Role Phone Chandu Bauer MD Primary Care Provider [phone] Encounter Details Date Type Department Care Team (Late st Contact Info) Description 02/12/2020 Transcribed Document [facility] [place] Family Medicine [address] [place] [address] ProviderYany MD [address] [place] [address] Social History Tobacco Use Types Packs/Day Years Used Date Smoking Tobacco: Never Assessed Comments Unknown Sex and Gender Information Value Date Recorded Sex Assigned at Not on file Legal Sex Female 5:31 PM CDT Gender Identity Not on file Sexual Orientation Not on file documented as of this encounter Miscellaneous Notes * Cerner Conversion Note - Yany ProviderMD - 02/12/2020 3:34 PM CDT Patient: RYNE WINKLER Age: 64 Years Sex: Female : 1955 FOLLOW-UP TELE-MEDICINE DATE OF SERVICE: 01/28/2020 CHIEF COMPLAINT: Chronic pain in lower back, legs, front and back, hips and feet. HISTORY OF PRESENT ILLNESS: The patient is a 64 y/o female who is evaluated today via Tele-Medicine secondary to COVID-19 virus. She has low back pain which radiates down to her feet with numbness and tingling. At last visit Diane from [employer] evaluated her but she did not need reprogramming, she needed a new piece of equipment which is on its way. She rates the pain as 6/10 on the pain scale. She gets 50% relief with her current medication. SOCIAL HISTORY: Reviewed and noted. Allergies: Penicillin, Vicodin, Sulfa drugs, Lyrica, Topiramate. Past Medical History: Arthritis High blood pressure High cholesterol Kidney stones Migraines Past Surgical History: Reviewed and noted. Past Family History: Reviewed and noted. REVIEW OF SYSTEMS: Complete ten system review was performed and noted to be positive for the following: General: Weight gain Respiratory: Negative. Neurological: Dizziness, numbness and tingling Gastrointestinal: Abdominal pain, constipation. Musculoskeletal: Joint pain, stiffness, back pain, muscle weakness, muscle aches and pains. Cardiovascular: Leg pain with walking. Psychiatric: Anxiety HEENT: Negative. Endocrine: Negative. Hematology: Negative. Skin: Negative. Genitourinary: Negative. VITAL SIGNS: Vital signs are deferred. PHYSICAL EXAMINATION: Physical examination is deferred. DIAGNOSTIC STUDIES: Not present MEDICAL DECISION MAKING: The patient's LAWSON has been reviewed and is appropriate. The patient denies any depression or plans to harm herself. ASSESSMENT: Stable. 1. Chronic pain syndrome. 2. Lumbar degenerative disc disease. 3. Lumbar radiculitis bilateral lower extremities status post spinal cord stimulator implantation [employer]. 4. Lumbar spondylosis. 5. Lumbar facet arthropathy. PROCEDURE/TEST ORDERED: Not present. CURRENT PLAN: I am going to continue Ms. Winkler on her current medications of Morphine Sulfate extended release 15 mg q h.s. Oxycodone 10 mg q 6 h. She takes Linzess. She is in agreement with the above plan. We will see her back in follow-up in two months. Suad Peterson M.D. KAI/layton Electronically signed by [facility] Conversion Stationary Engineer Refrigeration Cerner at 01/28/2023 3:07 PM CDT documented in this encounter Plan of Treatment Not on file documented as of this encounter Visit Diagnoses Not on filedocumented in this encounter Care Teams Program Manager Relationship Specialty Start Date End Date Chandu Bauer MD [address] [place], [place] [address] [address] PCP - General Nephrology 07/21/25 documented as of this encounter
--- OUTSIDE RECORDS SUMMARY | 2025-10-09 11:44 | XMS_ITS | Encounter Summary ---
Author Organization [employer] ([place], [place], [place], [place], [place]) Address [address] [place] [address] Care Team Providers Care Sap Bi Developer Name Role Phone Chandu Bauer MD Primary Care Provider [phone] Encounter Details Date Type Department Care Team (Late st Contact Info) Description 12/06/2019 Transcribed Document [facility] [place] [facility] [place] [address] ProviderYany MD [address] [place] [address] Social History Tobacco Use Types Packs/Day Years Used Date Smoking Tobacco: Never Assessed Comments Unknown Sex and Gender Information Value Date Recorded Sex Assigned at Not on file Legal Sex Female 5:31 PM CDT Gender Identity Not on file Sexual Orientation Not on file documented as of this encounter Miscellaneous Notes * Cerner Conversion Note - Yany ProviderMD - 12/06/2019 4:04 PM MOBILITY SPECIALIST Patient: RYNE WINKLER Age: 64 Years Sex: Female : 1955 FOLLOW-UP DATE OF SERVICE: 12/03/2019 CHIEF COMPLAINT: Chronic pain in lower back, legs, front and back, hips and feet. HISTORY OF PRESENT ILLNESS: The patient is a 64 y/o female who returns to the clinic for follow-up on her low back pain that radiates down to her feet with numbness and tingling. She rates the pain as 6/10 on the pain scale. Quality is aching, burning, radiating, numbness and tingling, dull and sharp. The pain is constant. She has had the pain since 1996. She has decreased pain with her stimulator and rest and increased pain with walking, standing too long. She gets 50% relief with her current medication. Fall risk info sheet has been provided. SOCIAL HISTORY: Allergies: Penicillin, Vicodin, Sulfa drugs, Lyrica, Topiramate. Marital status: The patient is . Current work status: She states she is disabled. Illicit drug use: Denies. Alcohol use: Denies. Current tobacco use: Denies. Caffeine use: Denies. Past Medical History: Arthritis High blood pressure High cholesterol Kidney stones. Migraines Past Surgical History: Appendix Breast Hysterectomy Spinal surgery of back Tonsils and adenoids. Tubal Spinal cord stimulator implantation Past Family History: Small cell cancer Other cancers Diabetes REVIEW OF SYSTEMS: Complete ten system review [...] Negative. VITAL SIGNS: Vital signs are reviewed. BP 128/83, heart rate 70, respiratory rate 16, O2 SATs 98%, height 5???7?? , weight 185 lbs PHYSICAL EXAMINATION: Constitutional: The patient is freely conversant, no acute distress. Integumentary: Deferred. HEENT: Deferred. Neck: Deferred. Chest and Lung: Deferred. Cardiovascular: Deferred. Abdomen: Deferred. Peripheral Vascular: Deferred Neurologic: Deferred. Psychiatric: Alert and oriented x 3 with normal mood and affect. She scored a 9 on the depression questionnaire. Musculoskeletal: Deferred. Established patient exam is deferred. DIAGNOSTIC STUDIES: Not present MEDICAL DECISION MAKING: The patient's LAWSON has been reviewed and is appropriate. Patient's medications are reviewed and are listed in the patient's file. ASSESSMENT: Stable. 1. Chronic pain syndrome. 2. Lumbar degenerative disc disease. 3. Lumbar radiculitis bilateral lower extremities status post spinal cord stimulator implantation, [employer]. 4. Lumbar spondylosis. 5. Lumbar facet arthropathy. PROCEDURE/TEST ORDERED: Not present. CURRENT PLAN: I am going to continue Ms. Winkler on her current medications of Morphine Sulfate ER 15 mg q h.s., Oxycodone 10 mg q 6 h. She did undergo spinal cord stimulator reprogram today with [employer]. She is in agreement with the above plan. We will see her back in follow-up in two months. Suad Peterson M.D. KAI/layton Electronically signed by [facility], [facility] Conversion Records And Tape Recordings Engineer Cerner at 01/28/2023 3:15 PM CDT documented in this encounter Plan of Treatment Not on file documented as of this encounter Visit Diagnoses Not on filedocumented in this encounter Care Teams Sap Bi Developer Relationship Specialty Start Date End Date Chandu Bauer MD [address] [place] [phone] PCP - General Nephrology 07/21/25 documented as of this encounter
--- OUTSIDE RECORDS SUMMARY | 2025-10-09 11:44 | XMS_ITS | Clinical Summary ---
Author Organization [facility] Address [address] [place] [address] Care Team Providers Care State Highway Police Officer Name Role Phone Chandu Bauer MD Primary Care Provider [phone] Family History Medical History Relation Name Comments Other cancer Father Other cancer Mother Relation Name Status Comments Father Mother Social History Tobacco Use Types Packs/Day Years Used Date Smoking Tobacco: Former Comments Unknown Sex and Gender Information Value Date Recorded Sex Assigned at Not on file Legal Sex Female 6:05 PM EDT Gender Identity Not on file Sexual Orientation Not on file Last Filed Vital Signs Vital Sign Reading Time Taken Comments Blood Pressure 136/81 12/14/2018 8:46 AM EST Pulse 93 12/14/2018 8:46 AM EST Temperature 36.6 C (97.9 F) 12/14/2018 8:46 AM EST Respiratory Rate - - Oxygen Saturation - - Inhaled Oxygen Concentration - - Weight 94.8 kg (208 lb 15.9 oz) 12/14/2018 8:46 AM EST Height 168.9 cm (5' 6.5 ) 12/14/2018 8:46 AM EST Body Mass Index 33.23 12/14/2018 8:46 AM EST Plan of Treatment Health Maintenance Due Date Last Done Comments [facility]-Bone Density Scan 1955 [facility]-Depression Screening 1955 [facility]-/Child/Adol SDOH Screenings 1955 [facility]- SDOH Screenings 1974 [facility]-Adult SDOH Screenings 1974 [facility]-DTaP,Tdap,and Td Vaccine s (1 - Tdap) 1975 CT Colonography 2001 Colonoscopy 2001 FIT-DNA 2001 FIT 2001 FOBT 2001 Sigmoidoscopy 2001 [facility]-Colorectal Cancer Screening 2001 [facility]-Pneumococcal Vaccine: 50 + Years (1 of 1 - PCV) 2006 [facility]-Zoster Vaccines (1 of 2) 2006 [id number] Vaccine (1 - season) 2025 [facility]-Influenza Vaccine (#1) 2025 [facility]-RSV Vaccine: 60+ Years o r (1 - 1-dose 75+ series) 2031 [facility]-Cervical Cancer Screening Discontinued [facility]-HPV/Cotest Discontinued 04/12/2011, 03/15/2011 [facility]-Pap Smear Discontinued 04/12/2011, 03/15/2011 HPV Vaccines (No Doses Required) Completed [facility]-HIB Vaccines Aged Out No longer e ligible based on patient's age to complete this topic [facility]-Hepatitis A Vaccines Aged Out No longer eligible based on patient's age to complete this topic [facility]-IPV Vaccines Aged Out No longer e ligible based on patient's age to complete this topic [facility]-Rotavirus Vaccines Aged Out No lo nger eligible based on patient's age to complete this topic Procedures Procedure Name Priority Date/Time Associated Diagnosis Comments CYTO DATA CONVERSION Routine 04/12/2011 12:00 AM EDT from Last 3 Months or Most Recently Relevant to Health Maintenance Results * Cytology (04/12/2011 12:00 AM EDT) Cyst fluid specimen (specimen) 04/12/2011 04/12/2011 9:54 AM EDT Narrative SUNQUEST - 04/16/2011 3:50 PM EDT [facility] MR #: [id number] [facility] RYNE WINKLER [place], [place] [address] 1955 (Age: 55) FW Collect Date: 04/12/2011 00:00 Receipt Date: 04/12/2011 09:54 Page 1 DEPARTMENT OF PATHOLOGY AND LABORATORY MEDICINE CYTOPATHOLOGY REPORT Email: [email or web address] ATTENDING MD/Practitioner: Esteban Adames Jr, MD Service: ENT Location: 3N OTHER MD(S): Grzegorz Bowden MD Reported: 04/16/2011 15:50 Collected: 04/12/2011 00:00 DIAGNOSIS A. LEFT NECK CYST, LEFT II, FLUID: PREDOMINANTLY DEBRIS WITH SINGLE GROUP OF ONCOCYTIC CELLS, SEE COMMENT. . COMMENT The concentrate slide demonstrates a single group of oncocytic cells in a background of debris. The cytologic findings are not specific, especially given the scant cellularity. While the findings could represent a cystic lesion with oncocytic metaplasia or even a Warthin's tumor or oncocytic cyst, the possibility of a neoplasm such as an oncocytoma or granular cell tumor cannot be excluded. No obvious features of carcinoma are identified. Further evaluation should be considered as clinically indicated. Electronically Signed Out Roe Mayers, CT(ASCP) Mis Puckett MD PROCEDURES/ADDENDA GROSS DESCRIPTION: 3 drops of bloody fluid. CLINICAL INFORMATION: CLINICAL DIAGNOSIS Cystic mass left level II neck SPECIMEN DESCRIPTION: A: NECK CYST FLUID THIN PREP PROCESS CELLULAR ENHANCEMENT ICD: 784.2 SWELLING, MASS, OR LUMP IN HEAD AND NECK F: A; 82157 SNOMED CODES: A; R08534 [id number] A resident has participated in this service. A pathologist has performed and is responsible for the reported pathologic evaluation. us Familia Adames MD LAB PATHOLOGY ORDERABLES Final R esult SUNQUEST from Last 3 Months or Most Recently Relevant to Health Maintenance Care Teams State Highway Police Officer Relationship Specialty [place] [id number] PCP - General 02/23/21
--- OUTSIDE RECORDS SUMMARY | 2025-10-09 11:44 | XMS_ITS | Encounter Summary ---
Author Organization [employer] ([place], [place], [place], [place], [place]) Address [address] [place] [address] Care Team Providers Care Bonding Machine Operator Name Role Phone Chandu Bauer MD Primary Care Provider [phone] Encounter Details Date Type Department Care Team (Late st Contact Info) Description 10/18/2019 Transcribed Document [facility] [place] [facility] [place] [address] ProviderYany MD [address] [place], [place] [id number] Social History Tobacco Use Types Packs/Day Years Used Date Smoking Tobacco: Never Assessed Comments Unknown Sex and Gender Information Value Date Recorded Sex Assigned at Not on file Legal Sex Female 5:31 PM CDT Gender Identity Not on file Sexual Orientation Not on file documented as of this encounter Miscellaneous Notes * Cerner Conversion Note - Yany ProviderMD - 10/18/2019 12:26 PM TIN WHIZ MACHINE OPERATOR Patient: RYNE WINKLER Age: 64 Years Sex: Female : 1955 FOLLOWUP DATE OF SERVICE: 10/05/2019 CHIEF COMPLAINT: Low back pain, bilateral hip, leg and foot pain. HISTORY OF PRESENT ILLNESS: The patient is a 64-year-old female who returns to the clinic today with a 21-year history significant for chronic low back pain, hip, leg and foot pain, being equal in severity. The patient states that the pain is worse with standing and walking for long durations of time. The patient does get relief with the use of her spinal cord stimulator as well as sitting for short durations of time. She also reports 40% pain relief with the use of her medication in the form of Morphine Sulfate 15 mg Extended Release one at bedtime, Oxycodone 10 mg four times daily dosing. She describes her pain level today as 6/10 on the numerical pain scale rating. Nursing intake is reviewed and on today's visit this individual is currently 5'7 and weighs 182 lb. HISTORY: Allergies: Penicillin, Vicodin, Sulfa, Lyrica, Topiramate. SOCIAL HISTORY: Marital status: . Current work status: The patient is disabled. Current tobacco use: Denies. Illicit drug use: Denies. Alcohol use: Denies. Caffeine use: Not reported. Past Medical History: Osteoarthritis. Hypertension. Hyperlipidemia. Kidney stones. Migraine headaches. Past Surgical History: Appendectomy. Lumpectomy. Complete hysterectomy. Spinal surgery of the lumbar spine. Tonsillectomy/Adenoidectomy. Tubal ligation. Spinal cord stimulator trial with three revisions. Past Family History: Cancer. Lung disease. Type 2 diabetes. REVIEW OF SYSTEMS: The patient's ten system Review of Systems was reviewed and at today's visit this individual has complaints of the following: General: Weight gain. Respiratory: Negative. Neurological: Dizziness, numbness/tingling. Gastrointestinal: Constipation. Musculoskeletal: Joint pain/stiffness, back pain, muscle weakness, muscle aches and pains. Cardiovascular: Leg pain with walking. Psychiatric: Anxiety. HEENT: Negative. Endocrine: Negative. Hematology: Negative. Skin: Negative. Genitourinary: Negative. PHYSICAL EXAMINATION: Constitutional: Conversant and well-nourished. Vital signs reviewed today. Integumentary: Deferred. HEENT: Deferred. Neck: Deferred. Chest and Lung: Deferred. Cardiovascular: Deferred. Abdomen: Deferred. Peripheral Vascular: Deferred. Neurologic: Deferred. Psychiatric: The patient is alert and oriented to self, time and place today. The patient has a normal mood and affect at today's visit and there is mild depression on the depression questionnaire that was completed today. Musculoskeletal: Deferred. ASSESSMENT: 1. Chronic pain syndrome. 2. Lumbar degenerative disc disease. 3. Lumbar radiculitis involving the bilateral lower extremities, status post spinal cord stimulator implantation [employer]. 4. Lumbar spondylosis. 5. Lumbar facet arthropathy. CURRENT PLAN: I am going to continue Ms. Winkler on her current medication regiment from our facility at this time. She is having difficulty with her spinal cord stimulator at this time. We are going to have her come in for a followup appointment where she can get reprogrammed with the [employer]. Her LAWSON report was appropriate upon review today. We will see the patient back in the clinic in two months for a followup appointment. MANOHRA Gil/beryl documented in this encounter Plan of Treatment Not on file documented as of this encounter Visit Diagnoses Not on filedocumented in this encounter Care Teams Bonding Machine Operator Relationship Specialty Start Date End Date Chandu Bauer MD [address] [place] [id number] PCP - General Nephrology 07/21/25 documented as of this encounter
--- NOTE | 2025-10-09 11:45 | ED_ITS ---
<Statement entered by Roberto Leyva MD - 10/09/25 15:33> Roberto Leyva MD: I was consulted by the ELZA, and we discussed the complexity of the problems being addressed. I approved the treatment and management plan for this patient's care in the emergency department, thus performing a substantive portion of the medical decision making. Discharge Plan Disposition Chief Complaint: Dizziness Prescriptions Prescriptions: New benzonatate 200 mg capsule 200 mg PO TID 10 Days Qty: 30 0RF albuterol sulfate [Ventolin HFA] 90 mcg/actuation HFA aerosol inhaler 2 inh inhalation Q8H PRN (Reason: shortness of breath or wheezing) Qty: 8.5 0RF No Action pravastatin 40 mg tablet 40 mg PO HS lisinopril 20 mg tablet 20 mg PO DAILY prednisone 5 mg tablet 5 mg PO DAILY Patient Comments: TAKE 1 TABLET BY MOUTH ONCE DAILY amitriptyline 50 mg tablet 50 mg PO DAILY methotrexate sodium 2.5 mg tablet 2.5 mg PO DAILY folic acid 1 mg tablet 1 mg PO DAILY morphine 15 mg tablet extended release 15 mg PO DAILY hydrochlorothiazide 25 mg tablet 25 mg PO DAILY lorazepam 1 mg tablet 1 mg PO TID metoprolol tartrate 25 mg tablet 25 mg PO BID oxycodone 10 mg tablet 10 mg PO QID Linzess 145 mcg capsule 145 mcg PO DAILY Trijardy XR 10-5-1,000 mg tablet, IR - ER, biphasic 24hr 1 tab PO DAILY Referrals Follow up/Referrals: Provider,Referral, MD [Referring, Medical] - See instructions Activity Restrictions/Add. Instructions Additional Instructions/Restrictions: Increase fluids and rest. Take meds as directed. If not improving please return to the ED Clinical Impressions Clinical Impression: Cough, Viral illness Instructions Patient Instructions: Cough, DI for Viral Syndrome Print Language Print Language: Lebanese Discharge ED Provider: Roberto Leyva General Adult HPI <Genie Perez (ED), ARCH SUPPORT TECHNICIAN - Last Filed: 10/09/25 15:07> General Chief complaint: Dizziness Stated complaint: syncope Time Seen by Provider: 10/09/25 11:27 Mode of Arrival: EMS Source of Information: Patient Description of Symptoms (Recalled from ER Triage Doc. by RN): Patient states she hasn't been feeling well for a couple of days, got up this morning and took some Coricidin cold medicine and then took her lexapro. Patient states that she started feeling numb in her hands and feet and then started feeling dizzy like she was going to pass out. Patient states she feels better now. History of Present Illness HPI narrative: 70-year-old female presents to the ED via EMS for not feeling well. She says she has not felt well for couple of days but she got up this morning and took her medication and about 10 minutes later states that she started feeling numb all over and felt like she would pass out. She never actually passed out. She says that she has been coughing so much and coughing up productive sputum that is yellow. She says she has had no fevers. She has just felt weak all over. She has had no nausea vomiting. No abdominal pain or chest pain. Related Data Home Medications ?Medication ?Instructions ?Recorded ?Confirmed amitriptyline 50 mg tablet 50 mg PO DAILY Pain 3 06/26/23 empagliflozin 10 mg-linagliptin 5 1 tab PO DAILY Diabe samreen 04/28/23 06/26/23 mg-metformin ER 1,000 mg tablet,24hr (Trijardy XR) folic acid 1 mg tablet 1 mg PO DAILY Supplement 06/26/23 hydrochlorothiazide 25 mg tablet 25 mg PO DAILY fluid retention 04/28/23 06/26/23 linaclotide 145 mcg capsule 145 mcg PO DAILY Constipat ion 04/28/23 06/26/23 (Linzess) lisinopril 20 mg tablet 20 mg PO DAILY blood pressur e 04/28/23 06/26/23 lorazepam 1 mg tablet 1 mg PO TID Anxiety 04/28/23 06/26/23 methotrexate sodium 2.5 mg tablet 2.5 mg PO DAILY Arth ritis 04/28/23 06/26/23 metoprolol tartrate 25 mg tablet 25 mg PO BID blood pr essure 04/28/23 06/26/23 morphine 15 mg tablet,extended 15 mg PO DAILY chronic pain 04/28/23 06/26/23 release oxycodone 10 mg tablet 10 mg PO QID chronic pain 06/26/23 pravastatin 40 mg tablet 40 mg PO HS Cholesterol 04/1206/26/23 prednisone 5 mg tablet 5 mg PO DAILY Arthritis 04/1206/26/23 Previous Rx's ?Medication ?Instructions ?Recorded albuterol sulfate 90 mcg/actuation 2 inh inhalation Q8 H PRN shortness 10/09/25 aerosol inhaler (Ventolin HFA) of breath or wheezing # 8.5 grams benzonatate 200 mg capsule 200 mg PO TID 10 days #30 c aps 10/09/25 Allergies Allergy/AdvReac Type Severity Reaction Status Date / Time hydrocodone Allergy Verified 04/28/23 10:02 Penicillins Allergy Verified 04/28/23 10:02 pregabalin (From Lyrica) Allergy Verified 04/28/23 10:02 Sulfa (Sulfonamide Allergy Verified 04/28/23 10:02 Antibiotics) topiramate (From Topamax) Allergy Verified 04/28/23 10:02 [facility] <Genie Perez (ED), ARCH SUPPORT TECHNICIAN - Last Filed: 10/09/25 15:07> [facility] Disclaimer: The information contained in this section may have been updated after the patient was seen, as this information can be updated by other users. Medical History (Updated 10/09/25 @ 13:51 by Genie Perez (ED), ARCH SUPPORT TECHNICIAN) Degenerative disc disease, lumbar Anxiety Diabetes Surgical History H/O lumbar discectomy S/P insertion of spinal cord stimulator Social History (Updated 04/30/23 @ 10:47 by Alethea Camara, MONICO) Smoking Status: Former smoker alcohol intake: never current occupational status: other Travel in the last 8 weeks?: None Have you lived/traveled outside [place] in past 30 days?: No Contact w/someone who lives/traveled outside US past 30 days?: No Exposure to someone with infectious disease in past 14 days?: No Do you have a fever (greater than 100.4 F or 38 C)?: No Have you tested positive for COVID-19?: No Exposed to someone with COVID-19 in past 14 days?: No Do you have a sore throat?: No Do you have a cough?: No Do you have any weakness?: No Do you have any diarrhea?: No Are you experiencing any unusual bleeding?: No Do you have any muscle aches/pain?: No Do you have any abdominal pain?: No Are you experiencing loss of taste or smell?: No Other Medical History Have you received the Flu Vaccine for this season: Yes Have you received the Pneumonia Vaccine: No <Genie Kilaaron (ED), ARCH SUPPORT TECHNICIAN - Last Filed: 10/09/25 15:07> ROS Obtained: Yes Systems reviewed as appropriate & no additional complaints except as documented Constitutional Constitutional: Reports as per HPI Physical Exam <Genie Kilaaron (ED), ARCH SUPPORT TECHNICIAN - Last Filed: 10/09/25 15:07> General General appearance: alert Head Head exam: normocephalic Eye Eye exam: Present PERRL and EOMI ENT ENT exam: Present normal oropharynx and mucous membranes moist Neck Neck exam: Present full ROM and trachea midline Respiratory Respiratory exam: Present wheezes and other (Rhonchi throughout) Cardiovascular Cardiovascular exam: Present regular rate, normal rhythm, normal heart sounds, +S1 and +S2 Abdominal Exam Abdominal exam: Present soft and normal bowel sounds Extremities Exam Extremities exam: Present full ROM and normal capillary refill Neurological Exam Neurological exam: Present alert and oriented X3 Skin Skin exam: Present warm and dry Medical Decision Making <Genie Perez (ED), ARCH SUPPORT TECHNICIAN - Last Filed: 10/09/25 15:07> Medical Records Screening: Per USPSTF and CDC recommendations, given the prevalence of disease in our region, it is our hospital?s policy to screen for HIV and viral Hepatitis for all patients aged 18 and over and those with ongoing risk factors. [place] Inquiry Pt receiving controlled substance: No [place]ist[place] was queried for this patient: No Vital Signs: 10/09/25 11:27 10/09/25 11:30 10/09/25 11:32 Temperature 98.6 F Temperature Source Oral Pulse Rate 73 70 Pulse Rate [Right Brachial] 72 Respiratory Rate 16 Blood Pressure Blood Pressure [Right Arm] 212/111 H Blood Pressure Mean Blood Pressure Mean [Right Arm] 144 Blood Pressure Source [Right Arm] Automatic Cuff 02 Sat by Pulse Oximetry 100 95 94 L Oxygen Delivery Method Room Air Room Air Room Air 10/09/25 12:07 10/09/25 12:07 10/09/25 12:15 Temperature Temperature Source Pulse Rate 68 73 Pulse Rate [Right Brachial] Respiratory Rate Blood Pressure 119/75 Blood Pressure [Right Arm] Blood Pressure Mean 86 Blood Pressure Mean [Right Arm] Blood Pressure Source [Right Arm] 02 Sat by Pulse Oximetry 97 97 Oxygen Delivery Method Room Air Room Air 10/09/25 12:30 10/09/25 12:32 10/09/25 12:33 Temperature Temperature Source Pulse Rate 76 81 Pulse Rate [Right Brachial] Respiratory Rate Blood Pressure 84/71 L Blood Pressure [Right Arm] Blood Pressure Mean 74 Blood Pressure Mean [Right Arm] Blood Pressure Source [Right Arm] 02 Sat by Pulse Oximetry 95 95 Oxygen Delivery Method Room Air Room Air 10/09/25 13:00 10/09/25 13:31 10/09/25 13:37 Temperature Temperature Source Pulse Rate 89 91 H 90 Pulse Rate [Right Brachial] Respiratory Rate Blood Pressure 92/60 L 110/64 101/74 L Blood Pressure [Right Arm] Blood Pressure Mean Blood Pressure Mean [Right Arm] Blood Pressure Source [Right Arm] 02 Sat by Pulse Oximetry 95 91 L 91 L Oxygen Delivery Method Room Air Room Air Room Air Lab Data Lab Results 10/09/25 11:30: SARS-CoV-2 (PCR) Not detected, Influenza A Untype (PCR) Not detected, Influenza Type B (PCR) Not detected 10/09/25 11:40: WBC 7.5, RBC 4.37, Hgb 13.7, Hct 40.7, MCV 93.1, MCH 31.4 H, MCHC 33.7, RDW 12.5, Plt Count 141 L, MPV 12.0 H, Neut % (Auto) 55.0, Lymph % (Auto) 32.3, Creek % (Auto) 8.4, Eos % (Auto) 3.6, Baso % (Auto) 0.4, Neut # (Auto) 4.2, Lymph # (Auto) 2.4, Creek # (Auto) 0.6, Eos # (Auto) 0.3, Baso # (Auto) 0.0, Sodium 136, Potassium 4.0, Chloride 97 L, Carbon Dioxide 30, Anion Gap 13.0, BUN 29 H, Creatinine 1.10 H, Estimated Creat Clear 63, Estimated GFR 49 L, Est GFR ( Amer) 60, Glucose 147 H, Calcium 9.5, Magnesium 2.1, Total Bilirubin 0.4, AST 32, ALT 30, Alkaline Phosphatase 71, Troponin I < 0.01, Total Protein 7.1, Albumin 4.1, Globulin 3.0, Albumin/Globulin Ratio 1.4, Lipase 96 10/09/25 11:40 10/09/25 11:40 Orders (Tests/Meds): ED MEDICATIONS Discontinued Medications Generic Name Dose Route Start Last Admin Trade Name Miguel Angelq PRN Reason Stop Dose Admin Albuterol/Ipratropium 9 ml 10/09/25 11:38 10/09/25 12:01 Ipratropium/Albuterol 3 Ml Neb IH 10/09/25 11:39 9 ml ONCE ONE Administration Dexamethasone Sodium Phosphate 8 mg 10/09/25 11:38 10/09/25 12:00 Dexamethasone 4mg/Ml 1ml Vial IV 10/09/25 11:39 8 mg ONCE ONE Administration Sodium Chloride 1,000 mls @ 999 mls/hr 10/09/25 11:38 10/09/25 13:02 Sod Chlor 0.9% 1000ml Bag IV 10/09/25 12:38 Infused .Q1H1M ONE Infusion Magnesium Sulfate 2 gm in 50 mls @ 50 mls/hr 10/09/25 11:38 10/09/25 13:02 Magnesium Sulfate 2gm/50ml Premix IV 10/09/25 12:37 Infused ONCE ONE Infusion Sodium Chloride 1,000 mls @ 999 mls/hr 10/09/25 13:29 10/09/25 14:08 Sod Chlor 0.9% 1000ml Bag IV 10/09/25 14:29 999 mls/hr .Q1H1M ONE Administration ORDERS Category Date Time Status Chest XR -- portable [XR chest portable] Stat Exams 10/09/25 11:38 Completed CBC [Complete Blood Count Auto Diff] Stat Lab 10/09/25 11:40 Completed Comprehensive Metabolic Panel Stat Lab 10/09/25 11:40 Completed Lipase Stat Lab 10/09/25 11:40 Completed Magnesium Stat Lab 10/09/25 11:40 Completed Rapid PCR Covid and Flu A/B Stat Lab 10/09/25 11:30 Completed Trop I [Troponin I] Stat Lab 10/09/25 11:40 Completed Troponin I Q3H Lab 10/09/25 14:45 Ordered Troponin I Q3H Lab 10/09/25 17:45 Ordered EKG Request [ECG Request] Stat Y 10/09/25 13:52 Ordered Medical Decision Narrative: patient is a 70-year-old female presenting to the emergency department for evaluation of weakness, cough. Patient is hemodynamically stable and nontoxic- appearing upon arrival, afebrile. Differential diagnosis includes viral illness, flu, COVID, among others. Workup will be conducted with hematologic labs, specific imaging. Initial inventions include crystalloid bolus, analgesics, antibiotics. Initial workup reviewed by me hematologic labs are remarkable foWhite blood cell count is 7.5, H&H were normal, electrolytes were stable, BUN was 29 creatinine was 1.1 she did get 2 bags of fluids while here in the ED. I do not have anything to compare her kidney function to. Her troponin was less than 0.01. Patient has had a cough and has had coughing for a few days. She says she has not felt well. She took her meds and then felt weak. I suspect that she had a drop in blood pressure after she took all her morning meds and Coricidin. She says her blood pressure has been running low at home. Patient says she feels much better after getting IV fluids and medications here. She and I discussed seeing her primary care tomorrow. She says she will go in tomorrow and see them. Her chest x-ray read by radiology showed no acute findings. Patient has no clinical signs or symptoms of a DVT, PE is not the #1 diagnosis or likely as she complains of predominantly cough, her heart rate has been under 91 and under, she has not been immobilized or had surgery in the last month, she has never had a PE or DVT, she is not spitting up blood and she has had no malignancy within the last 6 months. So her Wells score is 0 so this makes a PE less likely. I discussed this with patient and she will have close follow-up with PCP tomorrow and will use medications cough medications and albuterol and talk to her PCP tomorrow or return to the ED if symptoms worsen or do not improve. Patient safe for discharge home. <Roberto Leyav MD - Last Filed: 10/09/25 13:56> Vital Signs: 10/09/25 11:27 10/09/25 11:30 10/09/25 11:32 Temperature 98.6 F Temperature Source Oral Pulse Rate 73 70 Pulse Rate [Right Brachial] 72 Respiratory Rate 16 Blood Pressure Blood Pressure [Right Arm] 212/111 H Blood Pressure Mean Blood Pressure Mean [Right Arm] 144 Blood Pressure Source [Right Arm] Automatic Cuff 02 Sat by Pulse Oximetry 100 95 94 L Oxygen Delivery Method Room Air Room Air Room Air 10/09/25 12:07 10/09/25 12:07 10/09/25 12:15 Temperature Temperature Source Pulse Rate 68 73 Pulse Rate [Right Brachial] Respiratory Rate Blood Pressure 119/75 Blood Pressure [Right Arm] Blood Pressure Mean 86 Blood Pressure Mean [Right Arm] Blood Pressure Source [Right Arm] 02 Sat by Pulse Oximetry 97 97 Oxygen Delivery Method Room Air Room Air 10/09/25 12:30 10/09/25 12:32 10/09/25 12:33 Temperature Temperature Source Pulse Rate 76 81 Pulse Rate [Right Brachial] Respiratory Rate Blood Pressure 84/71 L Blood Pressure [Right Arm] Blood Pressure Mean 74 Blood Pressure Mean [Right Arm] Blood Pressure Source [Right Arm] 02 Sat by Pulse Oximetry 95 95 Oxygen Delivery Method Room Air Room Air 10/09/25 13:00 10/09/25 13:31 10/09/25 13:37 Temperature Temperature Source Pulse Rate 89 91 H 90 Pulse Rate [Right Brachial] Respiratory Rate Blood Pressure 92/60 L 110/64 101/74 L Blood Pressure [Right Arm] Blood Pressure Mean Blood Pressure Mean [Right Arm] Blood Pressure Source [Right Arm] 02 Sat by Pulse Oximetry 95 91 L 91 L Oxygen Delivery Method Room Air Room Air Room Air Lab Data Lab Results 10/09/25 11:30: SARS-CoV-2 (PCR) Not detected, Influenza A Untype (PCR) Not detected, Influenza Type B (PCR) Not detected 10/09/25 11:40: WBC 7.5, RBC 4.37, Hgb 13.7, Hct 40.7, MCV 93.1, MCH 31.4 H, MCHC 33.7, RDW 12.5, Plt Count 141 L, MPV 12.0 H, Neut % (Auto) 55.0, Lymph % (Auto) 32.3, Creek % (Auto) 8.4, Eos % (Auto) 3.6, Baso % (Auto) 0.4, Neut # (Auto) 4.2, Lymph # (Auto) 2.4, Creek # (Auto) 0.6, Eos # (Auto) 0.3, Baso # (Auto) 0.0, Sodium 136, Potassium 4.0, Chloride 97 L, Carbon Dioxide 30, Anion Gap 13.0, BUN 29 H, Creatinine 1.10 H, Estimated Creat Clear 63, Estimated GFR 49 L, Est GFR ( Amer) 60, Glucose 147 H, Calcium 9.5, Magnesium 2.1, Total Bilirubin 0.4, AST 32, ALT 30, Alkaline Phosphatase 71, Troponin I < 0.01, Total Protein 7.1, Albumin 4.1, Globulin 3.0, Albumin/Globulin Ratio 1.4, Lipase 96 Orders (Tests/Meds): ED MEDICATIONS Discontinued Medications Generic Name Dose Route Start Last Admin Trade Name Freq PRN Reason Stop Dose Admin Albuterol/Ipratropium 9 ml 10/09/25 11:38 10/09/25 12:01 Ipratropium/Albuterol 3 Ml Neb IH 10/09/25 11:39 9 ml ONCE ONE Administration Dexamethasone Sodium Phosphate 8 mg 10/09/25 11:38 10/09/25 12:00 Dexamethasone 4mg/Ml 1ml Vial IV 10/09/25 11:39 8 mg ONCE ONE Administration Sodium Chloride 1,000 mls @ 999 mls/hr 10/09/25 11:38 10/09/25 13:02 Sod Chlor 0.9% 1000ml Bag IV 10/09/25 12:38 Infused .Q1H1M ONE Infusion Magnesium Sulfate 2 gm in 50 mls @ 50 mls/hr 10/09/25 11:38 10/09/25 13:02 Magnesium Sulfate 2gm/50ml Premix IV 10/09/25 12:37 Infused ONCE ONE Infusion Sodium Chloride 1,000 mls @ 999 mls/hr 10/09/25 13:29 10/09/25 14:08 Sod Chlor 0.9% 1000ml Bag IV 10/09/25 14:29 999 mls/hr .Q1H1M ONE Administration ORDERS Category Date Time Status Chest XR -- portable [XR chest portable] Stat Exams 10/09/25 11:38 Completed CBC [Complete Blood Count Auto Diff] Stat Lab 10/09/25 11:40 Completed Comprehensive Metabolic Panel Stat Lab 10/09/25 11:40 Completed Lipase Stat Lab 10/09/25 11:40 Completed Magnesium Stat Lab 10/09/25 11:40 Completed Rapid PCR Covid and Flu A/B Stat Lab 10/09/25 11:30 Completed Trop I [Troponin I] Stat Lab 10/09/25 11:40 Completed Troponin I Q3H Lab 10/09/25 14:45 Ordered Troponin I Q3H Lab 10/09/25 17:45 Ordered EKG Request [ECG Request] Stat Y 10/09/25 13:52 Ordered ECG Data Tracing #1: Independently interpreted by me rate is 71, rhythm is regular, axis is normal, no ST elevation in anatomical contiguous leads, QTc 431. Critical Care <Genie Perez (ED), ARCH SUPPORT TECHNICIAN - Last Filed: 10/09/25 15:07> Critical Care Time Critical Care Time: No
[2025-10-09 11:49] LABS: Hematocrit 40.7 % (37.0-47.0); Hemoglobin 13.7 g/dL (12.2-16.2); Immature Granulocytes % 0.3 %; Mean Corpuscular HGB Conc 33.7 g/dL (31.8-35.4); Mean Corpuscular Hemoglobin 31.4 pg (27.0-31.2); Mean Corpuscular Volume 93.1 fl (81-99); Nucleated Red Blood Cells % 0 %; Platelet Count 141 K/mm3 (142-424); Red Blood Count 4.37 M/mm3 (4.20-5.40); Red Cell Distribution Width-SD 43.1 fL; White Blood Count 7.5 K/mm3 (4.8-10.8)
[2025-10-09] MEDS: DEXAMETHASONE 4MG/ML 1ML VIAL 8 MG IV (12:00)
[2025-10-09] MEDS: MAGNESIUM SULFATE IN WATER 2 GM/50 ML PIGGYBACK IV (12:00)
[2025-10-09] MEDS: 0.9 % SODIUM CHLORIDE 1000ML 1,000 ML 999 ML IV ×2 (12:01→14:08)
[2025-10-09] MEDS: IPRATROPIUM/ALBUTEROL 3 ML NEB 9 ML IH (12:01)
[2025-10-09 12:08] LABS: Albumin Level 4.1 g/dl (3.5-5.0); Chloride 97 mmol/L (98-107)
[2025-10-09 12:09] LABS: Potassium 4.0 mmoL/L (3.5-5.1); Sodium 136 mmol/L (136-145)
[2025-10-09 12:11] LABS: Alanine Aminotransferase 30 U/L (12-78); Albumin/Globulin Ratio 1.4 (1.1-1.8); Alkaline Phosphatase 71 U/L (38-126); Anion Gap 13.0 mEq/L (5-15); Aspartate Amino Transferase 32 U/L (14-36); Bilirubin,Total 0.4 mg/dl (0.2-1.3); Blood Urea Nitrogen 29 mg/dl (7-17); Calcium 9.5 mg/dl (8.4-10.2); Carbon Dioxide 30 mmol/L (22.0-30.0); Creatinine Clearance Estimated 63 mL/min (50-200); Creatinine,Serum 1.10 mg/dl (0.52-1.04); Estimated Glomerular Filt Rate 49 ml/min (>60); GFR (African American) 60 ML/MIN (>60); Globulin 3.0 g/dL (1.3-3.2); Glucose 147 mg/dl (74-100); Lipase 96 U/L (23-300); Total Protein,Serum 7.1 g/dl (6.3-8.2)
[2025-10-09 12:12] LABS: Magnesium 2.1 mg/dl (1.6-2.3)
[2025-10-09 12:23] LABS: Troponin I < 0.01 ng/ml (0.00-0.034)
== END 2025-10-09 15:22 | disposition home or self-care (01) ==
PROVIDERS: Nurse Practitioner; Emergency Provider Emergency Medicine; PCP Internal Medicine
DX: R06.89 Other abnormalities of breathing (principal); R55 Syncope and collapse; R05.1 Acute cough; B34.9 Viral infection, unspecified; I10 Essential (primary) hypertension; E11.9 Type 2 diabetes mellitus without complications; Z87.891 Personal history of nicotine dependence; Z79.84 Long term (current) use of oral hypoglycemic drugs
CPT/HCPCS: 71045; 80053; 83690; 83735; 84484; 85025; 87636; 93005; 96361; 96365; 96375; 99284; 99285; J1100; J3475; J7030